=== PATIENT | female | born 1980 | race Hispanic/Latino ===

== ENCOUNTER 2018-09-07 13:03 | Outpatient (CLI) | payer OTHER ==
--- NOTE | 2018-09-07 14:29 | ULT ---
THYROID SONOGRAM: History: Thyroid nodules. FINDINGS: Right thyroid lobe is 5.0 cm length. A 0.2 cm hypoechoic nodule is present ventrally. A 0.2 cm hypoec hoic nodule at the inferior pole. Isthmus is 0.3 cm. Left thyroid lobe is 4.7 cm. There is a 0.3 cm h ypoechoic nodule along the lateral margin and a 0.3 cm small hypoechoic nodule near the isthmus. IMPRESSION: Tiny nonspecific bilateral thyroid lobe nodules. No dominant aggressive process is apparent. POS: DAVINA
== END 2018-09-07 13:04 | disposition home or self-care (01) ==
LOC: BICULT 13:03
PROVIDERS: ATTEND Physician Assistant
DX: E04.2 Nontoxic multinodular goiter (principal)
CPT/HCPCS: 76536

== ENCOUNTER 2019-08-17 09:32 | Outpatient (CLI) | payer OTHER ==
--- NOTE | 2019-08-19 09:24 | EEG ---
Referring Physician: Román HOUSER EEG # [id number] TEST TYPE: ROUTINE OUTPATIENT REPORT: AN EEG USING THE [employer] TEN-TWENTY SYSTEM OF ELECTRODE PLACEMENT WAS PERFORMED. The waking background is a well modulated 9-10 hertz alpha frequency. The patient remained awake throughout the study. Hyperventilation and photic stimulation were unremarkable. No epileptiform features were present. IMPRESSION: THIS IS A NORMAL AWAKE EEG. Bedspread Cutter Hand: JENISE Bone Glue Maker: [email or web address] GALINDO
== END 2019-08-17 09:33 | disposition home or self-care (01) ==
LOC: EEG 09:32
PROVIDERS: ATTEND Psychiatry & Neurology Neurology
DX: G37.9 Demyelinating disease of central nervous system, unspecified (principal); R20.9 Unspecified disturbances of skin sensation
CPT/HCPCS: 95816

== ENCOUNTER 2019-08-26 07:32 | Outpatient (CLI) | payer OTHER ==
--- NOTE | 2019-08-26 10:47 | MRI ---
CERVICAL SPINE MRI WITH AND WITHOUT CONTRAST: HISTORY: Demyelinating disease. Cooling sensation over the entire body, x3-4 years. COMPARISON: None. FINDINGS: Appropriate T1 marrow signal intensity of the cervical vertebrae. Cervical spine vertebral body heigh t is maintained. There is no fracture. There is no significant STIR hyperintensity to suggest vertebral body edema or ligamentous injury. Postcontrast images do not demonstrate any abnormal enhancement with regards to the vertebral bodies. C2-C3: No significant canal stenosis or significant neural foraminal narrowing. C3-C4: Broad-based disc bulge abuts the thecal sac. Mild flattening of the cervical cord. Mild centra l canal stenosis. Bilaterally, neural foramina are patent. C4-C5: Broad-based disc bulge minimally contacts the ventral thecal sac. There is a small central dis c herniation with deformity to the midline cord. Mild central canal stenosis. Bilaterally, neural foramina are patent. C5-C6: There is a central/left paracentral disc osteophyte complex. Mild mass effect upon the left he micord. No cord abnormality. Right neural foramen is patent. Mild left foraminal narrowing due to uncovertebral hypertrophy. C6-C7: No significant central canal stenosis or significant neural foraminal narrowing. C7-T1: No significant central canal stenosis or significant neural foraminal narrowing. The visualized brain parenchyma, cervicomedullary junction, cervical cord and the visualized upper th oracic cord have an overall normal size and signal intensity. There is no evidence of T2 hyperintensity. There is no evidence of enhancement. IMPRESSION: 1. No MR evidence of a demyelinating plaque. 2. Varying degrees of central canal stenosis and foraminal narrowing on the basis of degenerative vance nge, as described above. Transcribed Date/Time: 08/26/2019 10:54 AM
--- NOTE | 2019-08-26 10:54 | MRI ---
Exam: Brain MRI with and without contrast HISTORY: Demyelinating disease. COMPARISON: None FINDINGS: Gradient echo sequence: No hemorrhage Calvarium: Appropriate T1 marrow signal intensity Midline brain parenchyma: Unremarkable Cerebrum:No parenchymal mass, mass effect or midline shift. Brain volume, less than expected for janak ent's age. Cortical whitmore-white matter differentiation is preserved. No significant T2 or FLAIR white matter hyperintensities. Ventricles: No evidence of hydrocephalus. White matter: There are no abnormal T2 or FLAIR white matter hyperintensities. Additionally, no abnor mal FLAIR hyperintensities in the chest allows. Sinuses and mastoid air cells: Mild mucosal thickening in the paranasal sinuses. Small mucous retenti on cyst in bilateral maxillary sinuses. Diffusion: Central arterial flow is maintained. Absent restricted diffusion. Postcontrast images: No pathologic enhancement of the brain parenchyma. IMPRESSION: 1. No abnormal T2 or FLAIR white matter hyperintensities to suggest demyelinating plaques. 2. Absent restricted diffusion. No acute infarct 3. No pathologic enhancement the brain parenchyma. 4. Brain volume, less than expected for patient's age
--- NOTE | 2019-08-26 10:59 | MRI ---
Exam: Thoracic spine MRI with and without contrast HISTORY: Demyelinating disease COMPARISON: None FINDINGS: Appropriate T1 marrow signal intensity of the thoracic vertebra. Vertebral body height is maintained. There is no fracture. No evidence for hyperintensity to suggest vertebral body edema or ligamentous injury. Postcontrast images do not demonstrate any abnormal enhancement with regards to the vertebral bodies. Visualized mediastinum, lung parenchyma and solid organs are grossly unremarkable. Throughout the thoracic spine, there is no significant central canal stenosis or significant neural f oraminal narrowing. The thoracic cord has a normal size and signal intensity. No cord expansion. No cord malacia. No abno rmal T2 signal intensities in the thoracic cord. There is no evidence of thoracic cord enhancement. Conus medullaris terminates at the mid L1 level. IMPRESSION: 1. No significant central canal stenosis or significant neural foraminal narrowing 2. No MR evidence of a demyelinating plaque in the thoracic cord
[2019-08-26] MEDS ORDERED: Magnevist 469MG/ML 20 ML VIAL ONE ×2 (11:18)
== END 2019-08-26 07:33 | disposition home or self-care (01) ==
LOC: BICMRI 07:32
PROVIDERS: ATTEND Psychiatry & Neurology Neurology
DX: G37.9 Demyelinating disease of central nervous system, unspecified (principal); M48.02 Spinal stenosis, cervical region; M47.812 Spondylosis without myelopathy or radiculopathy, cervical region
CPT/HCPCS: 70553; 72156; 72157; A9579

== ENCOUNTER 2020-09-03 09:07 | Outpatient (CLI) | payer OTHER ==
--- NOTE | 2020-09-03 09:58 | ULT ---
ULTRASOUND ABDOMEN COMPLETE: DATE: 09/03/2020 HISTORY: 40-year-old female with bilateral upper quadrant pain FINDINGS: Gallbladder: Normal wall thickness. No gallstones or sludge identified. No pericholecystic fluid. Liver: Normal parenchymal echogenicity. Bilateral kidneys: No hydronephrosis. The hilum of the left kidney at the midpole, there is a complex, 2.5 x 2.5 x 2 cm lesion which is pre dominantly hypoechoic, and interspersed with tiny echogenic foci. Pancreas: Nonspecific sonographic appearance. Common duct caliber: 4 mm. Abdominal aorta: No aneurysm Inferior vena cava: Unremarkable where visualized. Spleen: No splenomegaly IMPRESSION: 1) 2.5 cm left renal lesion. Recommend further evaluation with multiphase CT abdomen with and without contrast, renal mass protocol. 2) no other pathology identified.
== END 2020-09-03 09:08 | disposition home or self-care (01) ==
LOC: BICULT 09:07
PROVIDERS: ATTEND Nurse Practitioner Family
DX: R10.11 Right upper quadrant pain (principal); N28.9 Disorder of kidney and ureter, unspecified
CPT/HCPCS: 93975

== ENCOUNTER 2021-03-02 20:13 | Emergency (ER) | payer MEDICAID, SELFPAY ==
[2021-03-02 20:52] LABS: #Basophils 0.1 thou/uL (0.0-0.2); #Eosinphils 0.1 thou/uL (0.0-0.7); #Lymphocytes 2.4 thou/uL (1.20-3.40); #Monocytes 0.4 thou/uL (0.11-0.59); #Neutrophils 4.1 thou/uL (1.40-6.50); %Basophils 0.7 % (0.0-1.0); %Eosinophils 1.6 % (0.0-10.0); %Lymphocytes 33.6 % (21.0-51.0); %Monocytes 5.7 % (0.0-10.0); %Neutrophils 58.4 % (42.0-75.0); Hemoglobin 12.4 g/dL (12.0-16.0); Mean Corpuscular HGB CONC 34.4 g/dL (32.0-36.0); Mean Corpuscular Volume 87.4 fL (78.0-98.0); Mean Platelet Volume 6.4 fL (7.4-10.4); Platelet Count 247 thou/uL (130-400); RBC Distribution Width 11.5 % (11.5-14.5); Red Blood Cell (RBC) Count 4.14 mill/uL (4.20-5.40)
[2021-03-02 20:57] LABS: BHCG - Serum POSITIVE (NEGATIVE); Pregs Control Background? CLEAR/WHITE (CLR/WHITE); Pregs Control Bar Appear? YES (CONTROL BAR)
== END 2021-03-02 22:27 | disposition home or self-care (01) ==
LOC: ERS 20:13
DX: O20.0 Threatened abortion (principal); Z3A.01 Less than 8 weeks gestation of pregnancy
CPT/HCPCS: 36415; 84702; 84703; 85025; 86900; 86901; 99284

== ENCOUNTER 2021-12-16 10:52 | Outpatient (CLI) | payer OTHER | END 2021-12-16 10:53 | disposition home or self-care (01) | LOC: BICULT 10:52 | PROVIDERS: ATTEND Physician Assistant | DX: R10.9 Unspecified abdominal pain (principal) | CPT/HCPCS: 76856 ==